=== PATIENT | female | born 1975 | race Caucasian/White ===

== ENCOUNTER 2018-08-14 11:50 | Emergency (ER) | payer BC ==
[~2018-08-14] VITALS: Ht 162.6 cm; Wt 74.8 kg
[~2018-08-14 11:50] MED LIST: CIPR500 PO; CYCL10 PO; HYDACE5 PO; IRON150C PO; MULVITA; ORACON PO; Pyridium200 MG PO; RXLORA1 PO
== END 2018-08-14 13:50 | disposition home or self-care (01) ==
LOC: ER 11:50
DX: G43.909 Migraine, unspecified, not intractable, without status migrainosus (principal); F17.210 Nicotine dependence, cigarettes, uncomplicated
CPT/HCPCS: 70450; 96372; 99283-25; J1100; J1200; J1885; J2765

== ENCOUNTER 2019-09-17 09:12 | Day surgery (SDC) | payer BC ==
[~2019-09-17] VITALS: Ht 162.6 cm; Wt 75.4 kg
[~2019-09-17 09:12] MED LIST changes: +Ferosul325 MG PO; +Loratadine10 MG PO; +[UNRECOGNIZED DRUG - OTHER] PO
[2019-09-17] MEDS ORDERED: Prometrium200 MG PO (09:42)
[2019-09-17] MEDS ORDERED: ESTR2 PO (09:42)
--- NOTE | 2019-09-17 10:47 | NUR ---
09/17/19 Dwayne Spencer SMALL RED DOTS NOTED ON LOWER ABD BEFORE PREP STARTED.
--- NOTE | 2019-09-17 12:47 | NUR ---
09/17/19 1247 Darling Go PT MEDICATED FOR PAIN AND NAUSEA IN SDU. PT STATES NAUSEA HAS RESOLVED AT THIS TIME. PT MEDICATED WITH IV FENTANYL PER ORDERS. WILL GIVE DOSE OF PO MEDICATION ONCE SHE FINISHES HER COOKIES. VSS AND TOLERATING SNACKS WELL. MOM AT BEDSIDE AND CONVERSATING WITH PT.
== END 2019-09-17 13:31 | disposition home or self-care (01) ==
LOC: ORSCSDS 09:12
PROVIDERS: Obstetrics & Gynecology
PROC: 0UDB8ZX Extraction of Endometrium, Via Natural or Artificial Opening Endoscopic, Diagnostic (ICD-10-PCS; principal; 2019-09-17 10:30)
PROC: 0UT04ZZ Resection of Right Ovary, Percutaneous Endoscopic Approach (ICD-10-PCS; principal; 2019-09-17 10:30)
PROC: 0UT54ZZ Resection of Right Fallopian Tube, Percutaneous Endoscopic Approach (ICD-10-PCS; principal; 2019-09-17 10:30)
DX: N85.8 Other specified noninflammatory disorders of uterus (principal); R10.2 Pelvic and perineal pain; N84.0 Polyp of corpus uteri; F17.210 Nicotine dependence, cigarettes, uncomplicated; Z79.899 Other long term (current) drug therapy
CPT/HCPCS: 88305; J0171; J0690; J1100; J2250; J2405; J2704; J2710; J3010; J7120

== ENCOUNTER 2023-03-18 11:14 | Day surgery (SDC) | payer OTHER ==
[~2023-03-18] VITALS: Ht 162.6 cm; Wt 82.4 kg
[~2023-03-18 11:14] MED LIST changes: +Atropine Sulfate 0.1 MG/ML 10ML SYR ONE; +Estrace Vagin42.5 GM VAG; +GABA300 PO; +Glycopyrrolate 0.2 MG/ML 1MLVIAL ONE; +IBUP800 PO; +Lactated Ringer's 1,000 ML IV ONE; +Lidocaine 2% 5 ML SDV ONE; +Lidocaine HCl/Pf 1% 5 ML VIAL ONE; +Methylene Blue 1% 100 MG/10 ML VIAL ONE; +Ondansetron HCl 2 MG / ML 2ML Vial ONE; +Prometrium200 MG PO; +URSODIOL250 MG PO; +ePHEDrine Sulfate 50 MG/ML 1ML Injection ONE; +propofoL 40 ML IV ONE
[2023-03-18] MEDS ORDERED: Lactated Ringer's 1,000 ML IV ONE (12:38)
[2023-03-18] MEDS ORDERED: PREG25 PO (13:04)
[2023-03-18] MEDS ORDERED: TIZA4 PO (13:05)
[2023-03-18] MEDS ORDERED: VITAMIN D5000 UNIT PO (13:06)
[2023-03-18] MEDS ORDERED: ECHINACEA125 MG PO (13:06)
[2023-03-18] MEDS ORDERED: Midazolam HCL 1 MG/ML 5MLVIAL ONE (13:58)
[2023-03-18] MEDS ORDERED: propofoL 20 ML IV ONE (13:59)
[2023-03-18 15:37] VITALS: BP 144/89
== END 2023-03-18 15:37 | disposition home or self-care (01) ==
LOC: ORSCSDS 11:14
PROVIDERS: Internal Medicine Gastroenterology
PROC: 0DBE8ZX Excision of Large Intestine, Via Natural or Artificial Opening Endoscopic, Diagnostic (ICD-10-PCS; principal; 2023-03-18 12:45)
PROC: 0DBN8ZX Excision of Sigmoid Colon, Via Natural or Artificial Opening Endoscopic, Diagnostic (ICD-10-PCS; principal; 2023-03-18 12:45)
PROC: 0DBC8ZX Excision of Ileocecal Valve, Via Natural or Artificial Opening Endoscopic, Diagnostic (ICD-10-PCS; principal; 2023-03-18 12:45)
DX: R19.7 Diarrhea, unspecified (principal); D12.5 Benign neoplasm of sigmoid colon; F17.210 Nicotine dependence, cigarettes, uncomplicated; K76.0 Fatty (change of) liver, not elsewhere classified; Z79.899 Other long term (current) drug therapy
CPT/HCPCS: 88305; J0461; J2001; J2250; J2405; J2704; J7120; Q9968

== ENCOUNTER 2023-03-28 07:34 | Day surgery (SDC) | payer OTHER ==
[~2023-03-28] VITALS: Ht 162.6 cm; Wt 85.5 kg
[~2023-03-28 07:34] MED LIST changes: -Atropine Sulfate 0.1 MG/ML 10ML SYR ONE; +ECHINACEA125 MG PO; -Glycopyrrolate 0.2 MG/ML 1MLVIAL ONE; -Lactated Ringer's 1,000 ML IV ONE; -Lidocaine 2% 5 ML SDV ONE; -Methylene Blue 1% 100 MG/10 ML VIAL ONE; -Ondansetron HCl 2 MG / ML 2ML Vial ONE; +PREG25 PO; +TIZA4 PO; +VITAMIN D5000 UNIT PO; -ePHEDrine Sulfate 50 MG/ML 1ML Injection ONE; -propofoL 40 ML IV ONE
[2023-03-28] MEDS ORDERED: propofoL 50 ML IV ONE (07:36)
[2023-03-28] MEDS ORDERED: Lactated Ringer's 1,000 ML IV ONE ×2 (07:36→08:04)
[2023-03-28 10:27] VITALS: BP 128/86
== END 2023-03-28 10:25 | disposition home or self-care (01) ==
LOC: ORSCSDS 07:34
PROVIDERS: Internal Medicine Gastroenterology
PROC: 0DB68ZX Excision of Stomach, Via Natural or Artificial Opening Endoscopic, Diagnostic (ICD-10-PCS; principal; 2023-03-28 09:00)
PROC: 0DB98ZX Excision of Duodenum, Via Natural or Artificial Opening Endoscopic, Diagnostic (ICD-10-PCS; principal; 2023-03-28 09:00)
DX: K52.9 Noninfective gastroenteritis and colitis, unspecified (principal); B96.81 Helicobacter pylori [H. pylori] as the cause of diseases classified elsewhere; K31.7 Polyp of stomach and duodenum; F17.210 Nicotine dependence, cigarettes, uncomplicated; K76.0 Fatty (change of) liver, not elsewhere classified; Z79.899 Other long term (current) drug therapy
CPT/HCPCS: 88305; 88342; J2001; J2704; J7120

== ENCOUNTER → 2023-09-08 | Outpatient (CLI) | payer OTHER ==
[~2023-09-08] MED LIST changes: -Lidocaine HCl/Pf 1% 5 ML VIAL ONE
== END ==
LOC: LAB 15:04 → LAB SHORT 15:04
DX: H61.811 Exostosis of right external canal (principal)
CPT/HCPCS: 87070; 87077; 87147; 87186; 87205

== ENCOUNTER 2024-09-14 11:49 | Day surgery (SDC) | payer OTHER ==
[~2024-09-14] VITALS: Ht 162.6 cm; Wt 30.7 kg
[2024-09-14 14:04] VITALS: BP 96/68
== END 2024-09-14 14:04 | disposition home or self-care (01) ==
LOC: ORSCSDS 11:49
PROVIDERS: Specialist
PROC: 0DBB8ZX Excision of Ileum, Via Natural or Artificial Opening Endoscopic, Diagnostic (ICD-10-PCS; principal; 2024-09-14 13:15)
PROC: 0DBP8ZX Excision of Rectum, Via Natural or Artificial Opening Endoscopic, Diagnostic (ICD-10-PCS; principal; 2024-09-14 13:15)
DX: K52.9 Noninfective gastroenteritis and colitis, unspecified (principal); K62.1 Rectal polyp; K57.30 Diverticulosis of large intestine without perforation or abscess without bleeding; K64.8 Other hemorrhoids; Z86.0101 Personal history of adenomatous and serrated colon polyps; M79.7 Fibromyalgia; E66.9 Obesity, unspecified; Z68.30 Body mass index [BMI] 30.0-30.9, adult; Z79.899 Other long term (current) drug therapy; F17.210 Nicotine dependence, cigarettes, uncomplicated
CPT/HCPCS: 88305; J2704; J7120